=== PATIENT | male | born 1960 | race African-American/Black ===

== ENCOUNTER 2018-05-24 13:51 | Emergency (ER) | payer MEDICAID ==
[~2018-05-24] VITALS: Ht 170.2 cm; Wt 68.0 kg
[~2018-05-24 13:51] MED LIST: ASPI-231 PO; CAR125T PO; CLO01T PO; ENAL20TA70 PO; FURO20TA3 PO; ISOS20TA49 PO; SIMV-8 PO
[2018-05-24 13:58] VITALS: BP 163/112
[2018-05-24 15:52] LABS: Basophils # (auto) 0 uL; Basophils % (auto) 0.5 % (0.0-2.0); Hemoglobin 8.4 g/dL (13.5-17.5); Lymphocytes # (auto) 1.2 uL; Monocytes # (auto) 0.5 uL
[2018-05-24 15:53] LABS: Calcium 6.4 mg/dL (8.5-10.1)
[2018-05-24 15:56] LABS: BUN/Creatinine Ratio 8.7; Bilirubin, Total 0.2 mg/dL (0.2-1.0); Eosinophils # (auto) 0 uL; Eosinophils % (auto) 0.8 % (0.0-7.0); Hematocrit 25.8 % (41.0-53.0); Lymphocytes % (auto) 23.2 % (10.0-50.0); Mean Corpuscular Hemoglobin 26.9 pg (28.0-32.0); Mean Corpuscular Hgb Conc. 32.5 g/dL (32.0-36.0); Mean Corpuscular Volume 82.6 fL (80.0-100.0); Monocytes % (auto) 9.4 % (0.0-12.0); Neutrophils # (auto) 3.4 uL; Neutrophils % (auto) 66.1 % (37.0-80.0); Nucleated Red Blood Cells % 0.1 %; Platelet Count (auto) 178 10^3/uL (140-450); Red Blood Cells 3.12 10^6/uL (4.5-5.90); Red Cell Distribution Width 16.8 % (11.8-14.3); Total Protein 6.6 g/dL (6.4-8.2); White Blood Cell 5.1 10^3/uL (4.4-10.8)
[2018-05-24 16:15] LABS: Potassium 5.7 mmol/L (3.5-5.1)
[2018-05-24] MEDS ORDERED: InsuLIN REG 1unit/0.01ml Soln (100units/ml) IV ONE (17:00)
[2018-05-24] MEDS ORDERED: ALBUTEROL SULF 2.5 MG/0.5ML(0.5%) NEB SOLN NEB STA (17:00)
[2018-05-24] MEDS ORDERED: SODIUM POLYSTYRENE SULF 15 GM POWDER PO ONE (17:00)
[2018-05-24] MEDS ORDERED: CALCIUM GLUC 4.65meq/50ml D5AE 50 ML IV ONE (17:00)
[2018-05-24] MEDS ORDERED: SODIUM BICARBONATE 8.4% INJ 50ML SYRINGE IV ONE (17:00)
[2018-05-24] MEDS ORDERED: DEXTROSE (50%) 50ML SYRG IV ONE (17:00)
== END 2018-05-24 19:15 | disposition left against medical advice (07) ==
LOC: ER 13:54
DX: I12.0 Hypertensive chronic kidney disease with stage 5 chronic kidney disease or end stage renal disease (principal); N18.6 End stage renal disease; F17.210 Nicotine dependence, cigarettes, uncomplicated; E78.5 Hyperlipidemia, unspecified; E87.5 Hyperkalemia; Z99.2 Dependence on renal dialysis
CPT/HCPCS: 36415; 71045; 80053; 85025; 93005

== ENCOUNTER 2019-04-11 19:12 | Emergency (ER) | payer MEDICARE, MEDICAID ==
[~2019-04-11] VITALS: Ht 170.2 cm; Wt 70.3 kg
[~2019-04-11 19:12] MED LIST changes: +ENAL20TA PO; -ENAL20TA70 PO
[2019-04-11 19:37] VITALS: BP 182/121
[2019-04-16] MEDS ORDERED: ASPI-231 PO (12:18)
[2019-04-16] MEDS ORDERED: FURO20TA3 PO (12:18)
[2019-04-16] MEDS ORDERED: CAR125T PO (12:18)
[2019-04-16] MEDS ORDERED: HYDR-2691 PO (12:18)
[2019-04-16] MEDS ORDERED: CALC667C5 PO (12:18)
[2019-04-16] MEDS ORDERED: SIMV-8 PO (12:18)
[2019-04-16] MEDS ORDERED: ENAL20TA PO (12:18)
[2019-04-16] MEDS ORDERED: FAM20T PO (12:18)
== END 2019-04-12 01:14 | disposition left against medical advice (07) ==
LOC: ER 19:15
DX: R06.02 Shortness of breath (principal); Z53.21 Procedure and treatment not carried out due to patient leaving prior to being seen by health care provider
CPT/HCPCS: 93005